=== PATIENT | female | born 1995 | race Caucasian/White ===

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

== ENCOUNTER 2018-09-13 13:37 | Emergency (ER) | payer OTHER ==
[~2018-09-13] VITALS: Ht 172.7 cm; Wt 61.8 kg
[2018-09-13 15:12] LABS: BASO % 0.5 % (0.0-1.0); EOS # 0.2 10^3/uL (0.0-0.50); EOS % 3.8 % (0.0-3.0); HEMATOCRIT 39.5 % (36.0-47.0); HEMOGLOBIN 13.2 g/dl (12.0-15.5); LYMPH # 1.5 10^3/uL (1.5-6.5); LYMPH % 24.2 % (24.0-44.0); MEAN CORPUSCULAR HEMOGLOBIN 31.4 pg (27.0-33.0); MEAN CORPUSCULAR HGB CONC 33.4 g/dl (32.0-36.5); MEAN CORPUSCULAR VOLUME 93.8 fl (80.0-96.0); MONO # 0.5 10^3/uL (0.0-0.8); MONO % 7.8 % (0.0-5.0); NEUTROPHILS # 3.9 10^3/uL (1.8-7.7); NEUTROPHILS % 63.5 % (36.0-66.0); PLATELET COUNT, AUTOMATED 251 10^3/uL (150-450); RED BLOOD COUNT 4.21 10^6/uL (4.00-5.40); WHITE BLOOD COUNT 6.1 10^3/uL (4.0-10.0)
[2018-09-13 15:44] LABS: BLOOD UREA NITROGEN 16 MG/DL (7-18); CALCIUM LEVEL 8.9 MG/DL (8.5-10.1); CARBON DIOXIDE LEVEL 27 MEQ/L (21-32); CHLORIDE LEVEL 107 MEQ/L (98-107); CK-MB VALUE MASS < 1.0 NG/ML (<3.6); CPK CREATINE PHOSPHOKINASE 62 U/L (26-192); CREATININE FOR GFR 0.82 MG/DL (0.55-1.30); GLOMERULAR FILTRATION RATE > 60.0 (>60); GLUCOSE, FASTING 87 MG/DL (70-100); MAGNESIUM LEVEL 2.2 MG/DL (1.8-2.4); MB/CK RELATIVE INDEX 1.61 (< OR =4); SODIUM LEVEL 141 MEQ/L (136-145); THYROID STIMULATING HORMONE 0.672 uIU/ML (0.358-3.740); TROPONIN I < 0.02 NG/ML (< 0.10)
--- NOTE | 2018-09-13 16:11 | REP ---
CHEST PA AND LATERAL: 09/13/2018. Clinical history: Chest pain. Findings: There were no prior studies. The lung rivas show no evidence of infiltrate, effusion, atelectasis or pneumothorax. No mass or nodularity. The heart, mediastinal and hilar contours are normal. Aorta and airway intact. Bony thorax shows no focal lesion. No free air under the diaphragm. Impression: 1. No acute cardiopulmonary change. Electronically Signed by Karel Cagle MD 09/13/2018 07:36 P
[2018-09-13 16:16] VITALS: BP 99/59
--- NOTE | 2018-09-13 18:13 | ECGEPIP ---
Stationary ECG Study [facility] - ED Test Date: 2018-09-13 Pat Name: HARISH THOMPSON Department: Room: - Gender: F Mortgage Analyst: rubi : 1995 Requested By: SABA ORELLANA PA-C. Order Number: [id number] Reading MD: Chandra Proctor Measurements Intervals [place] Rate: 68 P: 62 [place]: 147 QRS: 73 QRSD: 90 T: 34 QT: 407 QTc: 434 Interpretive Statements SINUS RHYTHM INCOMPLETE RIGHT BUNDLE BRANCH BLOCK NSTTW ABNORMALITIES NO PRIORS FOR COMPARISON Electronically Signed On 09-13-2018 18:12:59 EST by Chandra Proctor
== END 2018-09-13 16:18 | disposition home or self-care (01) ==
LOC: M ED 13:37
DX: R00.2 Palpitations (principal); I45.19 Other right bundle-branch block; F41.9 Anxiety disorder, unspecified